=== PATIENT | female | born 1960 | race Caucasian/White ===

== ENCOUNTER 2016-07-25 09:48 | Emergency (ER) | payer OTHER ==
--- NOTE | 2016-07-25 11:16 | ED GENERAL ADULT ---
History of Present Illness General Chief Complaint: General Adult Stated Complaint: RT ARM PAIN,X 2 MONTHS,RIGHT FOOT PAIN,X1 MONTH Source: patient, family Exam Limitations: no limitations Vital Signs & Intake/Output Vital Signs & Intake/Output Vital Signs Date Time Temp Pulse Resp B/P Pulse O2 O2 Flow FiO2 Ox Delivery Rate 07/25 1223 98.1 82 18 148/70 98 Room Air 07/25 1116 Room Air Room Air 07/25 1003 97.2 86 20 149/98 Allergies Coded Allergies: cefaclor (From CECLOR) (NAUSEA 07/25/16) erythromycin base (NAUSEA 07/25/16) Uncoded Allergies: PCN (07/25/16) Reconcile Medications Meloxicam 7.5 MG TABLET 1 TAB PO DAILY PRN pain/inflammation Triage Note: PER PT SEEN AT [facility] 2 WEEKS AGO FOR PAIN TO RT ARM ANTECUBITAL AREA, AND FOREARM X 2 MONTHS. INVOLVING ANY MOVEMENT WITH HAND, JUST GETTING WORSE, ALSO RT LATERAL ASPECT PAIN FOR MONTHS NOW WALKING WITH LIMP, ACHES, ? BONE SPUR. Triage Nurses Notes Reviewed? yes HPI: Patient is a 56-year-old female presents complaining of right foot pain and right elbow pain. Right elbow pain for the past 2 months, worsening in intensity. Pain is a sharp and sometimes burning pain patient gets paresthesias to her right arm. Pain is currently moderate, worsens with palpation and use. Patient has been taking Tylenol and using heat to the area with no improvement. Patient was seen at the [facility] approximately 2 weeks ago and told that if she does not improve she should seek further evaluation. Also reports right foot pain 1 month. Pain is a sharp pain, worsens with walking. Patient does not recall any specific injury to the area. Patient was previously seeing a [place] [facility] but has not seen one for approximately 6 months due to them not accepting her insurance. Patient denies weakness, decreased range of motion Past History Travel History Traveled to [place] past 21 day No Medical History Any Pertinent Medical History? see below for history Neurological: NONE EENT: NONE Cardiovascular: hypertension, HIGH CHOL Gastrointestinal: NONE Hepatic: NONE Renal: NONE Musculoskeletal: NONE Psychiatric: NONE Endocrine: diabetes, THYROID Surgical History Surgical History: non-contributory Psychosocial History What is your primary language Brazilian Tobacco Use: Never used Family History Hx Contributory? No Review of Systems Review of Systems Constitutional: Denies: chills, fever. Cardiovascular: Denies: chest pain. GI: Denies: abdominal pain. Musculoskeletal: Reports: see HPI. Denies: back pain, neck pain. Skin: Denies: rash. Neurological/Psychological: Denies: headache, paresthesia (mild right arm). Hematologic/Endocrine: Denies: bruising, bleeding. Immunologic/Allergic: Denies: splenectomy. Physical Exam Physical Exam General Appearance: well developed/nourished, alert, awake Head: atraumatic, normal appearance Eyes: Bilateral: normal appearance. Ears, Nose, Throat: hearing grossly normal Neck: normal inspection, supple, full range of motion Respiratory: no respiratory distress Peripheral Pulses: 2+ radial (R), 2+ dorsalis pedis (R) Back: normal inspection, normal range of motion Extremities: TENDERNESS RIGHT MEDIAL ELBOW OVER THE MEDIAL EPICONDYLE. pAIN INCREASES WITH RESISTED WRIST EXTENSION. fULL RANGE OF MOTION OF RIGHT UPPER EXTREMITY. rIGHT FOOT TENDERNESS OVER THE FIFTH METATARSAL. fULL RANGE OF MOTION. Neurologic/Psych: no motor/sensory deficits, awake, alert, oriented x 3, normal mood/affect Skin: intact, normal color, warm/dry Core Measures ACS in differential dx? No CVA/TIA Diagnosis: No Severe Sepsis Present: No Septic Shock Present: No Progress Differential Diagnoses I considered the following diagnoses in my evaluation of the patient: Fracture, sprain, strain, tendinitis, epicondylitis, foreign body in foot, plantar fasciitis, calcaneal spur Plan of Care: Orders Procedure Date/time Status XRY-FOOT COMPLETE, RIGHT 07/25 1125 Active XRY-ELBOW 3 OR MORE VIEWS, R 07/25 1125 Active Initial ED EKG: none Departure Departure Disposition: HOME OR SELF CARE Condition: Stable Clinical Impression Primary Impression: Medial epicondylitis of elbow Secondary Impressions: Sprain of foot, right Referrals: ZACH YORK,CRISTINA (PCP/Family) LINDA QUINTANILLA DPM Additional Instructions: Follow-up with Dr. Quintanilla ([place] [facility]) for further evaluation of your foot. Call Tuesday or Tuesday for appointment. Also follow-up with your primary care provider for further evaluation of your elbow pain and for possible orthopedic referral. Rest, ice for 10-20 minutes 4-5 times a day, wear Joel wrap for support. Return to the emergency department if worsening of symptoms. Departure Forms: Customer Survey General Discharge Information Prescriptions: Current Visit Scripts Meloxicam 1 TAB PO DAILY PRN pain/inflammation #7 TAB Critical Care Note Critical Care Note Critical Care Time: non-applicable
[2016-07-25] MEDS ORDERED: MELOXICAM7.5 M1 PO (12:15)
--- NOTE | 2016-07-25 12:18 | RADIOLOGY REPORT ---
EXAMINATION: RIGHT FOOT AND RIGHT ELBOW CLINICAL INFORMATION: Right elbow pain without known trauma. Question tendinitis. Right foot pain over the fifth metatarsal. COMPARISON: March 11, 2007 TECHNIQUE: Three-view right elbow and 3 view right foot FINDINGS: There is no evidence of acute fracture or dislocation of the right elbow. No right elbow effusion is seen. No calcifications are seen about the medial or lateral epicondyles. No significant soft tissue swelling is seen overlying the olecranon. There is no evidence of acute fracture or dislocation of the right foot. No radiopaque foreign bodies identified. No gas within soft tissues. Some soft tissue prominence is seen about the fifth metatarsophalangeal joint. Plantar calcaneal spur present. IMPRESSION: No right elbow abnormality identified. Mild soft tissue swelling adjacent to the right fifth metatarsal phalangeal joint without gas within the soft tissues or radiopaque foreign body.
[2016-07-25 12:23] VITALS: BP 148/70
== END 2016-07-25 12:24 ==
LOC: ERH 09:48
DX: M77.01 Medial epicondylitis, right elbow (principal); S93.601A Unspecified sprain of right foot, initial encounter; X58.XXXA Exposure to other specified factors, initial encounter
CPT/HCPCS: 73080-RT; 73630-RT

== ENCOUNTER → 2018-03-03 | Day surgery (SDC) | payer OTHER ==
[~2018-03-03] VITALS: Ht 154.9 cm; Wt 76.2 kg
[~2018-03-03] MED LIST: MELOXICAM7.5 M1 PO
--- NOTE | 2018-03-03 10:08 | Operative Report ---
Operative/Inv Procedure Report Surgery Date: 03/03/18 Name of Procedure: Carpal tunnel release left Pre-Operative Diagnosis: Left carpal tunnel syndrome Post-Operative Diagnosis: Same Estimated Blood Loss: scant Surgeon/Idea Worker: Laurent Carpio MD Anesthesia: moderate sedation Operative/Procedure Note Note: Patient was counseled in regards to the procedure the alternatives the risks and expected outcomes as relates to request for surgical intervention to treat symptomatic left-sided carpal tunnel syndrome. We talked about the risks which included but were not limited to injury to the nerve permanent nature numbness pain swelling bleeding seroma worsening pain. She signed an informed consent in the office and again today. She was then brought to the operating placed supine on the table. Intravenous sedation antibiotics were given and a forearm tourniquet was placed. And was prepped and draped in usual sterile fashion. Caroline incision made through the skin subcutaneous tissue and palmar fascia. Transverse carpal ligament was opened under direct vision without additional pathology seen. The wound was irrigated closed with an extension splint. End dictation
== END ==
LOC: STS 02:17
DX: G56.02 Carpal tunnel syndrome, left upper limb (principal); I10 Essential (primary) hypertension; E11.9 Type 2 diabetes mellitus without complications; Z79.84 Long term (current) use of oral hypoglycemic drugs
CPT/HCPCS: J0131; J2250